=== PATIENT | female | born 1995 | race African-American/Black ===

== ENCOUNTER 2020-11-02 00:34 | Emergency (ER) | payer OTHER ==
[~2020-11-02 00:34] MED LIST: ANTIVERT25 MG PO; KETOROLAC TROME10 MG PO
[2020-11-02 01:41] LABS: BASOPHIL 0.6 % (0-2); EOSINOPHIL 2.7 % (0-5); HCT 35.4 % (37.0-47.0); HGB 11.8 g/dl (12.5-16.0); MCH 29.4 pg (25.0-31.0); MCHC 33.3 g/dL (32.0-36.0); MCV 88.1 fL (78.0-100.0); MONOCYTE 6.7 % (0-12); NEUTROPHIL 62.7 % (41-80); NRBC 0; PLT 289 K/uL (150-400); RBC 4.02 M/uL (4.20-5.40); RDW 12.6 % (11.5-14.0); WBC 10.8 K/uL (4.0-10.5)
[2020-11-02 01:42] LABS: BILIRUBIN NEGATIVE (NEGATIVE); BLOOD 1+ Ery/uL (NEGATIVE); CLARITY HAZY (CLEAR); COLOR ORANGE (YELLOW); GLUCOSE (U) TRACE mg/dL (NORMAL); LEUKOCYTES 1+ Leu/uL (NEGATIVE); NITRITE POSITIVE (NEGATIVE); PROTEIN 3+ mg/dL (NEGATIVE); SPECIFIC GRAVITY >=1.030 (1.001-1.030); UROBILINOGEN >=8.0 mg/dL (0.2-1.0)
[2020-11-02 01:43] LABS: URINARY WBC TNTC
[2020-11-02 01:44] LABS: BACTERIA 2+; URINARY RBC 20-50
[2020-11-02 02:00] LABS: ALBUMIN 3.7 g/dL (3.4-5.0); BILIRUBIN - TOTAL 0.3 mg/dL (0.2-1.0); BUN/CREAT RATIO (CALC) 14.6 RATIO; CREATININE 0.82 mg/dL (0.51-0.95); GLOBULIN (CALCULATION) 3.9 g/dL; POTASSIUM 3.6 mmol/L (3.5-5.1); TOTAL PROTEIN 7.6 g/dL (6.4-8.2)
[2020-11-02] MEDS ORDERED: ZOFRAN4 M1 PO (03:23)
[2020-11-02] MEDS ORDERED: BACTRIM DS TAB1 EACH PO (03:23)
[2020-11-02] MEDS ORDERED: PYRIDIUM200 MG PO (03:23)
[2020-11-02] MEDS ORDERED: NAPROXEN500 MG PO (03:23)
== END 2020-11-02 03:45 | disposition home or self-care (01) ==
LOC: FER 00:34
PROVIDERS: Emergency Medicine
DX: N39.0 Urinary tract infection, site not specified (principal); R31.9 Hematuria, unspecified
CPT/HCPCS: 36415; 80053; 81001; 84145; 84703; 85025; 87076; 87088; 87186; J0696; J1885; J2405